=== PATIENT | male | born 1970 | race Caucasian/White ===

== ENCOUNTER 2022-01-10 14:37 | Inpatient (IN) | payer MEDICAID ==
[~2022-01-10] VITALS: Ht 188 cm; Wt 99.3 kg
[2022-01-10] MEDS ORDERED: folic acid 1mg tablet PO STA (16:45)
[2022-01-10] MEDS ORDERED: thiamine 100mg tablet PO STA (16:45)
[2022-01-10] MEDS ORDERED: LORazepam 1 MG tablet PO ONE (16:45)
[2022-01-10] MEDS ORDERED: normal saline 1000ml 1,000 ML IV ONE ×2 (17:00→22:20)
--- NOTE | 2022-01-10 17:10 | NUR ---
1000ml nacl bolas started
--- NOTE | 2022-01-10 17:19 | NUR ---
po meds x3 given
[2022-01-10 17:26] LABS: BASOPHILS # (AUTO) 0.1 X10'3 (0-0.2); BASOPHILS % (AUTO) 0.6 % (0-1); EOSINOPHILS % (AUTO) 0.1 % (0-6); HEMATOCRIT 37.6 % (42.0-52.0); HEMOGLOBIN 12.9 g/dl (14.0-17.9); LYMPHOCYTES % (AUTO) 11.7 % (21-51); MEAN CORPUSCULAR HGB CONC 34.3 g/dL (33.0-36.5); MEAN CORPUSCULAR VOLUME 105.1 FL (78-98); MEAN PLATELET VOLUME 8.7 FL (7.4-10.4); MONOCYTES # (AUTO) 0.9 X10'3 (0-0.9); MONOCYTES % (AUTO) 10.2 % (2-12); NEUTROPHILS # (AUTO) 6.7 X10'3 (1.8-7.7); NEUTROPHILS % (AUTO) 77.4 % (42-75); RED BLOOD COUNT 3.58 X10'6 (4.70-6.10); WHITE BLOOD COUNT 8.6 X10'3 (4.5-11.0)
[2022-01-10 17:37] LABS: ALANINE AMINOTRANSFERASE 118 U/L (12-78); ALBUMIN 3.2 G/DL (3.4-5.0); ALBUMIN/GLOBULIN RATIO 0.7 (1.1-1.5); ALKALINE PHOSPHATASE 138 IU/L (46-116); ANION GAP 11 (8-16); ASPARTATE AMINO TRANSFERASE 377 U/L (10-37); BILIRUBIN,TOTAL 1.7 MG/DL (0.1-1.0); BLOOD UREA NITROGEN 4 MG/DL (7-18); CALCIUM 7.7 MG/DL (8.5-10.1); CHLORIDE 95 MMOL/L (99-107); CREATININE 0.99 MG/DL (0.60-1.10); ETHANOL 0.283 GM/DL (0.0-0.010); GLUCOSE 131 MG/DL (70-104); SODIUM 132 MMOL/L (135-145); TOTAL CARBON DIOXIDE 26.4 MMOL/L (24-32); TOTAL PROTEIN 7.8 G/DL (6.4-8.2); eGFR 79 ML/MIN
[2022-01-10 17:47] LABS: POTASSIUM 2.9 MMOL/L (3.5-5.1)
[2022-01-10 18:26] LABS: PLATELET COUNT 38 X10'3 (140-440)
[2022-01-10] MEDS ORDERED: POTASSIUM BICARB 20meq eff tab 20 MEQ TABLET.EFF PO ONE (18:45)
--- NOTE | 2022-01-10 19:02 | NUR ---
po med given urine sent to lab
[2022-01-10 19:15] LABS: URINE AMPHETAMINE SCREEN NEGATIVE (Neg); URINE BARBITUATE SCREEN NEGATIVE (Neg); URINE BENZODIAZEPINES SCREEN NEGATIVE (Neg); URINE CANNABINOID SCREEN NEGATIVE (Neg); URINE COCAINE SCREEN NEGATIVE (Neg); URINE METHADONE SCREEN NEGATIVE (Neg); URINE OPIATE SCREEN NEGATIVE (Neg); URINE PHENCYCLIDINE SCREEN NEGATIVE (Neg)
[2022-01-10] MEDS ORDERED: LORazepam 2 mg/ml vial IV ONE (22:20)
[2022-01-10 22:36] LABS: LIPASE 456 U/L (73-393)
[2022-01-10 23:56] LABS: ACETAMINOPHEN < 2.0 UG/ML (10-30)
[2022-01-11] MEDS ORDERED: iohexol 300mg/ml 100ml inj. ONE (00:34)
--- NOTE | 2022-01-11 00:42 | NUR ---
PT TO CT WITH TECH
[2022-01-11] MEDS ORDERED: LORazepam 1 MG tablet PO ONE ×2 (05:30)
[2022-01-11] MEDS ORDERED: ringers solution, lacted 1,000 ML IV ONE (06:55)
[2022-01-11] MEDS ORDERED: diazepam inj 5 MG/ML inj. IV ONE (06:56)
[2022-01-11] MEDS ORDERED: POTASSIUM BICARB 20meq eff tab 20 MEQ TABLET.EFF PO ONE (06:57)
[2022-01-11] MEDS ORDERED: magnesium 2GM in 50ml NS 50 ML IV ONE (06:57)
[2022-01-11] MEDS ORDERED: potassium Cl 10 mEq/100mL bag IV ONE (06:58)
[2022-01-11] MEDS ORDERED: ATEN-169 PO (07:24)
[2022-01-11] MEDS ORDERED: BUSP5TAB3 PO (07:25)
[2022-01-11 07:50] LABS: URINE AMPHETAMINE SCREEN NEGATIVE (Neg); URINE BARBITUATE SCREEN NEGATIVE (Neg); URINE BENZODIAZEPINES SCREEN NEGATIVE (Neg); URINE CANNABINOID SCREEN NEGATIVE (Neg); URINE COCAINE SCREEN NEGATIVE (Neg); URINE METHADONE SCREEN NEGATIVE (Neg); URINE OPIATE SCREEN NEGATIVE (Neg); URINE PHENCYCLIDINE SCREEN NEGATIVE (Neg)
[2022-01-11] MEDS ORDERED: ondansetron/PF 4mg/2ml inj IV PRN (10:25)
[2022-01-11] MEDS ORDERED: POTASSIUM BICARB 20meq eff tab 20 MEQ TABLET.EFF PO PRN (10:25)
[2022-01-11] MEDS ORDERED: magnesium 4gm in 100ml NS 100 ML IV PRN (10:25)
[2022-01-11] MEDS ORDERED: magnesium hydroxide 30ml (MOM) UD suspension PO PRN (10:25)
[2022-01-11] MEDS ORDERED: potassium CL 10mEq/100ml bag 100 ML IV PRN (10:25)
[2022-01-11] MEDS ORDERED: acetaminophen 650mg rectal suppository RC PRN (10:25)
[2022-01-11] MEDS ORDERED: haloperidol lactate 5mg/ml inj IM PRN (10:25)
[2022-01-11] MEDS ORDERED: bisacodyl 10mg suppository rectal RC PRN (10:25)
[2022-01-11] MEDS ORDERED: mag hydrox/Alum hydrox/simeth 30ml oral suspension PO PRN (10:25)
[2022-01-11] MEDS ORDERED: dextrose 50%-water 50ml dispensing syringe IV PRN (10:25)
[2022-01-11] MEDS ORDERED: PERFLUTREN PROTEIN-A MICROSPHR (Optison) 0.22 MG/ML 3ML VIAL IV ONE (10:25)
[2022-01-11] MEDS ORDERED: morphine 2 MG/ML inj. syringe IV PRN ×2 (10:25)
[2022-01-11] MEDS ORDERED: magnesium 2GM in 50ml NS 50 ML IV PRN (10:25)
[2022-01-11] MEDS ORDERED: haloperidol 5mg tablet PO PRN (10:25)
[2022-01-11] MEDS ORDERED: diphenhydrAMINE 25mg capsule PO PRN (10:25)
[2022-01-11] MEDS ORDERED: magnesium Cl slow-release 64mg tablet PO PRN (10:25)
[2022-01-11] MEDS ORDERED: acetaminophen 325mg tablet PO PRN ×2 (10:25)
[2022-01-11] MEDS ORDERED: HYDROcodone/acetaminophen 5mg/325mg tablet PO PRN (10:25)
[2022-01-11 10:56] LABS: CLARITY,URINE SLIGHTLY CLOUDY (Clear); COLOR,URINE YELLOW (Yellow); GLUCOSE, URINE NEGATIVE (Neg); KETONES,URINE NEGATIVE (Neg); LEUKOCYTE ESTERASE ,URINE NEGATIVE (Neg); NITRITES, URINE NEGATIVE (Neg); OCCULT BLOOD,URINE MODERATE (Neg); PH,URINE 6.5 (4.8-8.0); PROTEIN,URINE TRACE mg/dl (Neg)
[2022-01-11 10:57] LABS: UA COLLECTION TYPE URINAL
[2022-01-11 11:02] LABS: BACTERIA,URINE 1+ /HPF (Neg); RBC,URINE 0-2 /HPF (0-2); SQUAMOUS EPITHELIAL CELL,UR NONE SEEN /LPF (FEW)
[2022-01-11 11:33] LABS: MAGNESIUM 1.8 MG/DL (1.5-2.4); POTASSIUM 3.6 MMOL/L (3.5-5.1)
[2022-01-11] MEDS: dextrose 5%-normal saline 1,000 ML IV SCH (11:37)
[2022-01-11] MEDS: lactulose 20gm/30ml cup PO SCH ×3 (11:39→20:28)
[2022-01-11 12:14] LABS: HEMOGLOBIN A1C 5.1 % (4.5-6.2)
[2022-01-11] MEDS: LORazepam 2 mg/ml vial IV PRN ×5 (12:48→23:38)
[2022-01-11] MEDS: thiamine 100mg/ml 2ml inj. IV SCH ×2 (12:48→20:27)
[2022-01-11 13:30] LABS: HIV ANTIBODY 1&2 RAPID NON-REACTIVE (Neg)
[2022-01-11] MEDS ORDERED: ATEN100T PO (15:59)
[2022-01-11] MEDS ORDERED: ATOR20TA66 PO (15:59)
[2022-01-11] MEDS ORDERED: BUSP15TA7 PO (15:59)
--- NOTE | 2022-01-11 16:41 | NUR ---
Message: Casey Ballard#[id number]- Pt is very shaky and 1 mg of Ativan is not touching him. pt drinks 1.75 L of vodka daily with Gatorade. sometimes beer as well. per pt. could we get a severe ETOH protocol. thank you. Jayshree [id number]
[2022-01-11 18:00] VITALS: BP 147/86
--- NOTE | 2022-01-11 18:25 | NUR ---
Patient in room PCU 3017. I have received report from JOSE Martell and had the opportunity to ask questions and assume patient care.
--- NOTE | 2022-01-11 18:46 | NUR ---
Problems reprioritized. Patient report given, questions answered & plan of care reviewed with salma GARCIA.
[2022-01-11] MEDS: docusate sod 100mg capsule PO SCH ×2 (20:00→20:28)
[2022-01-11] MEDS: K and/or MAG REPLACEMENT MC SCH (20:00)
[2022-01-11 22:00] VITALS: BP 139/80
[2022-01-12] MEDS: HYDROcodone/acetaminophen 10/325mg tab PO PRN (01:10)
[2022-01-12] MEDS: LORazepam 2 mg/ml vial IV PRN ×6 (01:11→23:57)
[2022-01-12] MEDS: lactulose 20gm/30ml cup PO SCH ×4 (01:12→20:22)
[2022-01-12 02:00] VITALS: BP 132/85
[2022-01-12] MEDS: CefTRIAXone/D5W-Rocephin 1gm 50 ML IV SCH ×2 (02:59→08:17)
[2022-01-12] MEDS: dextrose 5%-normal saline 1,000 ML IV SCH (05:09)
[2022-01-12 06:00] VITALS: BP 120/87
--- NOTE | 2022-01-12 06:26 | NUR ---
Problems reprioritized. Patient report given, questions answered & plan of care reviewed with JOSE Mandujano.
[2022-01-12 06:36] LABS: EOSINOPHILS % (AUTO) 1.1 % (0-6); HEMATOCRIT 36.1 % (42.0-52.0); HEMOGLOBIN 12.3 g/dl (14.0-17.9); LYMPHOCYTES # (AUTO) 0.6 X10'3 (1.1-4.8); LYMPHOCYTES % (AUTO) 16.6 % (21-51); MEAN CORPUSCULAR HEMOGLOBIN 36.6 PG (27.0-31.0); MEAN CORPUSCULAR HGB CONC 34.1 g/dL (33.0-36.5); MEAN CORPUSCULAR VOLUME 107.3 FL (78-98); MEAN PLATELET VOLUME 9.4 FL (7.4-10.4); MONOCYTES # (AUTO) 0.5 X10'3 (0-0.9); MONOCYTES % (AUTO) 12.9 % (2-12); NEUTROPHILS # (AUTO) 2.5 X10'3 (1.8-7.7); NEUTROPHILS % (AUTO) 68.4 % (42-75); RED BLOOD COUNT 3.37 X10'6 (4.70-6.10); RED CELL DISTRIBUTION WIDTH 14.2 % (11.5-14.5); WHITE BLOOD COUNT 3.6 X10'3 (4.5-11.0)
[2022-01-12 06:54] LABS: PLATELET COUNT 24 X10'3 (140-440)
[2022-01-12 06:58] LABS: ALANINE AMINOTRANSFERASE 106 U/L (12-78); ALBUMIN 2.9 G/DL (3.4-5.0); ALBUMIN/GLOBULIN RATIO 0.7 (1.1-1.5); ALKALINE PHOSPHATASE 125 IU/L (46-116); ANION GAP 8 (8-16); ASPARTATE AMINO TRANSFERASE 331 U/L (10-37); BILIRUBIN,TOTAL 2.5 MG/DL (0.1-1.0); BLOOD UREA NITROGEN 6 MG/DL (7-18); BUN/CREATININE RATIO 5.7 (5.4-32.0); CALCIUM 7.9 MG/DL (8.5-10.1); CHLORIDE 104 MMOL/L (99-107); CHOL/HDL RATIO 2.6 (0.00-4.99); CHOLESTEROL 110 MG/DL (0-200); CREATININE 1.06 MG/DL (0.60-1.10); GLUCOSE 103 MG/DL (70-104); HDL CHOLESTEROL 43 MG/DL (35-60); LDL CHOLESTEROL 61 MG/DL (50-100); LIPASE 330 U/L (73-393); POTASSIUM 3.1 MMOL/L (3.5-5.1); SODIUM 141 MMOL/L (135-145); TOTAL PROTEIN 7.1 G/DL (6.4-8.2); TRIGLYCERIDES 46 MG/DL (20-135); eGFR 73 ML/MIN
--- NOTE | 2022-01-12 07:18 | NUR ---
Dr. Damico paged about patient getting medication even though the patient is on NPO. Also paged about the patients critically low at 24.
[2022-01-12] MEDS: docusate sod 100mg capsule PO SCH ×2 (08:00→20:00)
[2022-01-12] MEDS: thiamine 100mg/ml 2ml inj. IV SCH ×3 (08:01→20:25)
[2022-01-12] MEDS: atenolol 50mg tablet PO SCH (08:01)
[2022-01-12] MEDS: busPIRone 15mg tablet PO SCH ×3 (08:01→20:22)
[2022-01-12] MEDS: pantoprazole 40mg Tablet.DR PO SCH (08:01)
[2022-01-12] MEDS: atorvastatin 20mg tablet PO SCH (08:02)
[2022-01-12] MEDS: folic acid 1mg/0.2ml inj IV SCH (08:17)
[2022-01-12] MEDS: K and/or MAG REPLACEMENT MC SCH ×2 (08:30→19:40)
[2022-01-12] MEDS: POTASSIUM BICARB 20meq eff tab 20 MEQ TABLET.EFF PO PRN (08:31)
[2022-01-12 10:53] LABS: HBSAG SCREEN Negative (Negative); HEP A AB, IGM Negative (Negative); HEPATITIS C ANTIBODY <0.1 s/co ratio (0.0-0.9)
[2022-01-12 18:00] VITALS: BP 135/85
--- NOTE | 2022-01-12 18:30 | NUR ---
Patient in room PCU 3017. I have received report from ALEJANDRA GARCIA and had the opportunity to ask questions and assume patient care.
[2022-01-12 22:00] VITALS: BP 147/96
[2022-01-13] MEDS: dextrose 5%-normal saline 1,000 ML IV SCH ×2 (00:02→20:59)
[2022-01-13 02:00] VITALS: BP 139/88
[2022-01-13] MEDS: lactulose 20gm/30ml cup PO SCH ×4 (03:08→20:55)
[2022-01-13] MEDS: LORazepam 2 mg/ml vial IV PRN ×2 (04:28→07:32)
[2022-01-13 06:00] VITALS: BP 156/90
--- NOTE | 2022-01-13 06:30 | NUR ---
Problems reprioritized. Patient report given, questions answered & plan of care reviewed with ALEJANDRA GARCIA.
[2022-01-13] MEDS: pantoprazole 40mg Tablet.DR PO SCH (07:31)
[2022-01-13] MEDS: atorvastatin 20mg tablet PO SCH (07:31)
[2022-01-13] MEDS: busPIRone 15mg tablet PO SCH ×3 (07:31→20:55)
[2022-01-13] MEDS: CefTRIAXone/D5W-Rocephin 1gm 50 ML IV SCH (07:31)
[2022-01-13] MEDS: atenolol 50mg tablet PO SCH (07:31)
[2022-01-13] MEDS: folic acid 1mg/0.2ml inj IV SCH (07:32)
[2022-01-13] MEDS: thiamine 100mg/ml 2ml inj. IV SCH ×3 (07:38→20:55)
[2022-01-13] MEDS: docusate sod 100mg capsule PO SCH ×2 (07:39→20:00)
[2022-01-13 07:46] LABS: BASOPHILS % (AUTO) 0.8 % (0-1); EOSINOPHILS # (AUTO) 0.1 X10'3 (0-0.9); HEMATOCRIT 37.9 % (42.0-52.0); HEMOGLOBIN 12.9 g/dl (14.0-17.9); LYMPHOCYTES # (AUTO) 0.6 X10'3 (1.1-4.8); LYMPHOCYTES % (AUTO) 13.9 % (21-51); MEAN CORPUSCULAR HEMOGLOBIN 36.7 PG (27.0-31.0); MEAN PLATELET VOLUME 10.6 FL (7.4-10.4); MONOCYTES # (AUTO) 0.5 X10'3 (0-0.9); MONOCYTES % (AUTO) 10.9 % (2-12); NEUTROPHILS % (AUTO) 72.4 % (42-75); RED CELL DISTRIBUTION WIDTH 14.4 % (11.5-14.5); WHITE BLOOD COUNT 4.2 X10'3 (4.5-11.0)
[2022-01-13 07:53] LABS: PLATELET COUNT 30 X10'3 (140-440)
[2022-01-13] MEDS: K and/or MAG REPLACEMENT MC SCH ×2 (08:00→20:00)
[2022-01-13 08:26] LABS: ALANINE AMINOTRANSFERASE 97 U/L (12-78); ALBUMIN/GLOBULIN RATIO 0.7 (1.1-1.5); ALKALINE PHOSPHATASE 129 IU/L (46-116); ANION GAP 14 (8-16); ASPARTATE AMINO TRANSFERASE 251 U/L (10-37); BILIRUBIN,TOTAL 2.1 MG/DL (0.1-1.0); BLOOD UREA NITROGEN 8 MG/DL (7-18); BUN/CREATININE RATIO 7.6 (5.4-32.0); CHLORIDE 105 MMOL/L (99-107); CREATININE 1.05 MG/DL (0.60-1.10); GLUCOSE 105 MG/DL (70-104); LIPASE 383 U/L (73-393); POTASSIUM 3.4 MMOL/L (3.5-5.1); SODIUM 145 MMOL/L (135-145); TOTAL PROTEIN 7.5 G/DL (6.4-8.2); eGFR 74 ML/MIN
[2022-01-13] MEDS: POTASSIUM BICARB 20meq eff tab 20 MEQ TABLET.EFF PO PRN (09:08)
[2022-01-13] MEDS ORDERED: LORazepam 1 MG tablet PO PRN (09:30)
[2022-01-13 10:00] VITALS: BP 134/79
[2022-01-13] MEDS ORDERED: LORazepam 2 mg/ml vial IV PRN (10:25)
[2022-01-13 14:00] VITALS: BP 132/79
[2022-01-13 18:00] VITALS: BP 148/90
[2022-01-13] MEDS: LORazepam 1 MG tablet PO PRN (20:56)
[2022-01-13] MEDS: HYDROcodone/acetaminophen 10/325mg tab PO PRN (20:57)
[2022-01-14] VITALS (7 sets, daily range): BP systolic 102–156; BP diastolic 65–94
--- NOTE | 2022-01-14 00:21 | NUR ---
Patient in room PCU 3017. I have received report from Delbert GARCIA and had the opportunity to ask questions and assume patient care.
[2022-01-14] MEDS: lactulose 20gm/30ml cup PO SCH ×4 (02:26→20:00)
[2022-01-14] MEDS: LORazepam 1 MG tablet PO PRN ×8 (02:26→21:19)
[2022-01-14] MEDS: HYDROcodone/acetaminophen 10/325mg tab PO PRN (05:28)
--- NOTE | 2022-01-14 07:00 | NUR ---
Problems reprioritized. Patient report given, questions answered & plan of care reviewed with Pitman RN.
[2022-01-14] MEDS: K and/or MAG REPLACEMENT MC SCH ×2 (08:00→20:00)
[2022-01-14] MEDS: pantoprazole 40mg Tablet.DR PO SCH (08:14)
[2022-01-14] MEDS: busPIRone 15mg tablet PO SCH ×3 (08:14→21:19)
[2022-01-14] MEDS: atenolol 50mg tablet PO SCH (08:14)
[2022-01-14] MEDS: docusate sod 100mg capsule PO SCH ×2 (08:14→20:00)
[2022-01-14] MEDS: thiamine 100mg/ml 2ml inj. IV SCH (08:15)
[2022-01-14] MEDS: atorvastatin 20mg tablet PO SCH (08:20)
[2022-01-14] MEDS: CefTRIAXone/D5W-Rocephin 1gm 50 ML IV SCH (08:34)
[2022-01-14] MEDS: folic acid 1mg/0.2ml inj IV SCH (08:40)
[2022-01-14 09:11] LABS: BASOPHILS # (AUTO) 0.1 X10'3 (0-0.2); BASOPHILS % (AUTO) 1.2 % (0-1); EOSINOPHILS # (AUTO) 0.1 X10'3 (0-0.9); EOSINOPHILS % (AUTO) 2.7 % (0-6); HEMATOCRIT 37.1 % (42.0-52.0); HEMOGLOBIN 12.7 g/dl (14.0-17.9); LYMPHOCYTES # (AUTO) 0.8 X10'3 (1.1-4.8); LYMPHOCYTES % (AUTO) 18.1 % (21-51); MEAN CORPUSCULAR HEMOGLOBIN 36.6 PG (27.0-31.0); MEAN CORPUSCULAR HGB CONC 34.2 g/dL (33.0-36.5); MEAN CORPUSCULAR VOLUME 107.1 FL (78-98); MEAN PLATELET VOLUME 11.2 FL (7.4-10.4); MONOCYTES # (AUTO) 0.6 X10'3 (0-0.9); MONOCYTES % (AUTO) 13.6 % (2-12); NEUTROPHILS # (AUTO) 2.9 X10'3 (1.8-7.7); NEUTROPHILS % (AUTO) 64.4 % (42-75); RED BLOOD COUNT 3.46 X10'6 (4.70-6.10); RED CELL DISTRIBUTION WIDTH 14.2 % (11.5-14.5); WHITE BLOOD COUNT 4.5 X10'3 (4.5-11.0)
[2022-01-14 09:12] LABS: ALANINE AMINOTRANSFERASE 78 U/L (12-78); ALBUMIN 2.9 G/DL (3.4-5.0); ALBUMIN/GLOBULIN RATIO 0.7 (1.1-1.5); ALKALINE PHOSPHATASE 115 IU/L (46-116); ANION GAP 13 (8-16); ASPARTATE AMINO TRANSFERASE 163 U/L (10-37); BILIRUBIN,TOTAL 2.4 MG/DL (0.1-1.0); BLOOD UREA NITROGEN 7 MG/DL (7-18); BUN/CREATININE RATIO 7.5 (5.4-32.0); CALCIUM 7.6 MG/DL (8.5-10.1); CHLORIDE 104 MMOL/L (99-107); CREATININE 0.93 MG/DL (0.60-1.10); GLUCOSE 97 MG/DL (70-104); LIPASE 374 U/L (73-393); MAGNESIUM 1.6 MG/DL (1.5-2.4); PHOSPHORUS 2.5 MG/DL (2.3-4.5); POTASSIUM 3.2 MMOL/L (3.5-5.1); SODIUM 142 MMOL/L (135-145); TOTAL CARBON DIOXIDE 25.4 MMOL/L (24-32); TOTAL PROTEIN 7.1 G/DL (6.4-8.2); eGFR 85 ML/MIN
[2022-01-14 09:29] LABS: PLATELET COUNT 39 X10'3 (140-440)
--- NOTE | 2022-01-14 09:40 | NUR ---
Doctor Nisha paged and informed of patient's platelet's result at 0940. Platelets is 39. I spoke with Doctor Cameron and he stated he is aware of the platelet at 39. No further advice given. Will continue to monitor.
[2022-01-14] MEDS ORDERED: POTASSIUM BICARB 20meq eff tab 20 MEQ TABLET.EFF PO PRN (11:30)
[2022-01-14] MEDS ORDERED: magnesium Cl slow-release 64mg tablet PO PRN (11:30)
[2022-01-14] MEDS ORDERED: magnesium 4gm in 100ml NS 100 ML IV PRN (11:30)
[2022-01-14] MEDS ORDERED: potassium CL 10mEq/100ml bag 100 ML IV PRN (11:30)
[2022-01-14] MEDS: dextrose 5%-normal saline 1,000 ML IV SCH (12:38)
--- NOTE | 2022-01-14 13:01 | NUR ---
Patient continues to have watery stool throughout this morning. Patient refused to take anymore lactulose today. Refused afternoon dose. Patient has tremors and appears restless. Ativan given per orders. Patient asking for Nicotine patch. Doctor Nisha paged. Awaiting return called.
[2022-01-14] MEDS: POTASSIUM BICARB 20meq eff tab 20 MEQ TABLET.EFF PO PRN ×2 (14:53→21:18)
[2022-01-15] MEDS: lactulose 20gm/30ml cup PO SCH ×3 (01:05→13:12)
[2022-01-15 02:00] VITALS: BP 146/87
[2022-01-15] MEDS: LORazepam 1 MG tablet PO PRN (02:43)
[2022-01-15 06:49] LABS: ALANINE AMINOTRANSFERASE 70 U/L (12-78); ALBUMIN 2.9 G/DL (3.4-5.0); ALBUMIN/GLOBULIN RATIO 0.7 (1.1-1.5); ALKALINE PHOSPHATASE 110 IU/L (46-116); ANION GAP 11 (8-16); ASPARTATE AMINO TRANSFERASE 121 U/L (10-37); BILIRUBIN,TOTAL 2.4 MG/DL (0.1-1.0); BLOOD UREA NITROGEN 5 MG/DL (7-18); BUN/CREATININE RATIO 5.4 (5.4-32.0); CALCIUM 7.9 MG/DL (8.5-10.1); CHLORIDE 102 MMOL/L (99-107); CREATININE 0.92 MG/DL (0.60-1.10); GLUCOSE 85 MG/DL (70-104); LIPASE 349 U/L (73-393); MAGNESIUM 1.7 MG/DL (1.5-2.4); POTASSIUM 3.4 MMOL/L (3.5-5.1); SODIUM 141 MMOL/L (135-145); TOTAL PROTEIN 7.3 G/DL (6.4-8.2); eGFR 86 ML/MIN
[2022-01-15 06:52] LABS: BASOPHILS % (AUTO) 1.1 % (0-1); EOSINOPHILS # (AUTO) 0.2 X10'3 (0-0.9); EOSINOPHILS % (AUTO) 4.2 % (0-6); HEMATOCRIT 39.9 % (42.0-52.0); HEMOGLOBIN 13.4 g/dl (14.0-17.9); LYMPHOCYTES # (AUTO) 1.1 X10'3 (1.1-4.8); MEAN CORPUSCULAR HEMOGLOBIN 36.1 PG (27.0-31.0); MEAN CORPUSCULAR HGB CONC 33.5 g/dL (33.0-36.5); MEAN CORPUSCULAR VOLUME 107.9 FL (78-98); MONOCYTES # (AUTO) 0.8 X10'3 (0-0.9); MONOCYTES % (AUTO) 16.9 % (2-12); NEUTROPHILS # (AUTO) 2.4 X10'3 (1.8-7.7); NEUTROPHILS % (AUTO) 53.8 % (42-75); RED CELL DISTRIBUTION WIDTH 14.5 % (11.5-14.5); WHITE BLOOD COUNT 4.5 X10'3 (4.5-11.0)
[2022-01-15 06:57] LABS: PLATELET COUNT 41 X10'3 (140-440)
[2022-01-15 07:10] VITALS: BP 148/90
--- NOTE | 2022-01-15 07:12 | NUR ---
Patient refused 199 Lactulose 30 ml PO related to he want to sleep and don't go to bathroom always BM, his ammonia level is trend down from 64, 53, 38, MD notified.
--- NOTE | 2022-01-15 07:20 | NUR ---
PAGER ID: [phone] MESSAGE: [phone] Lor Ballard: ileana...critical plt 41. trending up. thanks, alden [id number]
[2022-01-15] MEDS: pantoprazole 40mg Tablet.DR PO SCH (07:30)
[2022-01-15 08:00] VITALS: BP_SYST 148
[2022-01-15] MEDS: busPIRone 15mg tablet PO SCH ×2 (08:00→13:11)
[2022-01-15] MEDS: CefTRIAXone/D5W-Rocephin 1gm 50 ML IV SCH (08:00)
[2022-01-15] MEDS: docusate sod 100mg capsule PO SCH (08:00)
[2022-01-15] MEDS: K and/or MAG REPLACEMENT MC SCH (08:00)
[2022-01-15] MEDS: atenolol 50mg tablet PO SCH (08:00)
[2022-01-15] MEDS: atorvastatin 20mg tablet PO SCH (08:00)
[2022-01-15] MEDS ORDERED: FOLI1TAB27 PO (08:20)
[2022-01-15] MEDS ORDERED: LORA-269 PO (08:20)
[2022-01-15 10:16] LABS: TOTAL CELLS COUNTED 100
[2022-01-15 10:17] LABS: PLATELET ESTIMATE DECREASED
[2022-01-15] MEDS ORDERED: LORazepam 1 MG tablet PO PRN (10:25)
[2022-01-15] MEDS ORDERED: LORazepam 2 mg/ml vial IV PRN (10:25)
--- NOTE | 2022-01-15 12:03 | NUR ---
Met with patient in regards to alcohol use and to see if patient was interested in resources for treatment options. Patient is interested in both in and out patient rehabs. I gave patient an application for [facility], also [facility], a list of different facilities and talked about medication management to help with cravings.
[2022-01-15] MEDS: dextrose 5%-normal saline 1,000 ML IV SCH (13:13)
--- NOTE | 2022-01-15 13:39 | NUR ---
Patient stable and appropriate for discharge home. IV x2 removed, night monitor removed. All discharge instructions and education given and reviewed with patient, all questions answered. FWW delivered to room.
[2022-01-16] MEDS ORDERED: thiamine 100mg tablet PO SCH (08:00)
[2022-01-16] MEDS ORDERED: folic acid 1mg tablet PO SCH (08:00)
== END 2022-01-15 13:40 | disposition home or self-care (01) | DRG 280 ==
LOC: ER 14:37 → ED HOLD 01-11 10:28 → PCU 3S 01-11 16:54
PROVIDERS: ADMIT Family Medicine; ATTEND Family Medicine
PROC: BW211ZZ Computerized Tomography (CT Scan) of Abdomen and Pelvis using Low Osmolar Contrast (ICD-10-PCS; principal; 2022-01-11)
DX: K70.10 Alcoholic hepatitis without ascites (principal); K85.20 Alcohol induced acute pancreatitis without necrosis or infection; E87.2 Acidosis; E87.1 Hypo-osmolality and hyponatremia; R16.0 Hepatomegaly, not elsewhere classified; Z20.822 Contact with and (suspected) exposure to COVID-19; D69.59 Other secondary thrombocytopenia; D53.9 Nutritional anemia, unspecified; S80.01XA Contusion of right knee, initial encounter; E78.5 Hyperlipidemia, unspecified; E87.6 Hypokalemia; F10.229 Alcohol dependence with intoxication, unspecified; F32.A Depression, unspecified; W18.39XA Other fall on same level, initial encounter; F10.230 Alcohol dependence with withdrawal, uncomplicated; I10 Essential (primary) hypertension; K74.60 Unspecified cirrhosis of liver; F17.210 Nicotine dependence, cigarettes, uncomplicated; N39.0 Urinary tract infection, site not specified; R29.6 Repeated falls; S80.02XA Contusion of left knee, initial encounter; Z59.00 Homelessness unspecified; Z79.899 Other long term (current) drug therapy; Z88.0 Allergy status to penicillin; Y93.89 Activity, other specified; Y92.89 Other specified places as the place of occurrence of the external cause; Y99.8 Other external cause status
CPT/HCPCS: 36415; 73560; 74177; 76700; 80053; 80061; 80305; 80320; 80329; 81001; 82140; 83036; 83605; 83690; 83735; 84100; 84132; 85007; 85025; 85610; 86703; 86705; 86709; 86803; 87040; 87088; 87340; 87502; 87503; 87635; 93306; 97116; 97161; 97530; 99285; G0378; J0696; J2060; J3360; J3411; J3475; J3480; J3490; J7030; J7042; J7120; Q9967

== ENCOUNTER 2023-07-15 20:08 | Emergency (ER) | payer MEDICAID ==
[~2023-07-15] VITALS: Ht 188 cm; Wt 93.0 kg
[~2023-07-15 20:08] MED LIST: ATEN100T PO; ATOR20TA66 PO; BUSP15TA7 PO; FOLI1TAB27 PO; LORA-269 PO
[2023-07-15 20:26] VITALS: BP 155/105; PULSE 88; RESP 18; TEMP 98.2; O2SAT 96
[2023-07-15 21:20] LABS: BASOPHILS # (AUTO) 0.1 X10'3 (0-0.2); EOSINOPHILS # (AUTO) 0.2 X10'3 (0-0.9); LYMPHOCYTES # (AUTO) 0.9 X10'3 (1.1-4.8); MONOCYTES # (AUTO) 0.6 X10'3 (0-0.9)
[2023-07-15 21:24] LABS: HEMATOCRIT 42.8 % (42.0-52.0); MEAN CORPUSCULAR VOLUME 103.9 FL (78-98); RED BLOOD COUNT 4.12 X10'6 (4.70-6.10)
[2023-07-15 21:25] LABS: EOSINOPHILS % (AUTO) 3.1 % (0-6); HEMOGLOBIN 14.8 g/dl (14.0-17.9); MEAN CORPUSCULAR HEMOGLOBIN 35.9 PG (27.0-31.0); MEAN CORPUSCULAR HGB CONC 34.5 g/dL (33.0-36.5); MEAN PLATELET VOLUME 8.9 FL (7.4-10.4); MONOCYTES % (AUTO) 11.7 % (2-12); NEUTROPHILS # (AUTO) 3.6 X10'3 (1.8-7.7); NEUTROPHILS % (AUTO) 66.2 % (42-75); PLATELET COUNT 62 X10'3 (140-440); RED CELL DISTRIBUTION WIDTH 13.8 % (11.5-14.5); WHITE BLOOD COUNT 5.4 X10'3 (4.5-11.0)
[2023-07-15 21:30] LABS: ALANINE AMINOTRANSFERASE 125 U/L (12-78); ALBUMIN 3.3 G/DL (3.4-5.0); ALBUMIN/GLOBULIN RATIO 0.7 (1.1-1.5); ALKALINE PHOSPHATASE 124 IU/L (46-116); ANION GAP 14 (8-16); ASPARTATE AMINO TRANSFERASE 284 U/L (10-37); BILIRUBIN,TOTAL 2.2 MG/DL (0.1-1.0); BLOOD UREA NITROGEN 6 MG/DL (7-18); CALCIUM 7.9 MG/DL (8.5-10.1); CHLORIDE 99 MMOL/L (99-107); CREATININE 0.75 MG/DL (0.60-1.10); GLUCOSE 128 MG/DL (70-104); POTASSIUM 4.1 MMOL/L (3.5-5.1); SODIUM 137 MMOL/L (135-145); TOTAL CARBON DIOXIDE 24.2 MMOL/L (24-32); TOTAL PROTEIN 8.1 G/DL (6.4-8.2); eCRCL 132 ML/MIN; eGFR > 90 ML/MIN
[2023-07-15 21:40] LABS: PRO BRAIN NATRIURETIC PEPTIDE 52 PG/ML (0-125)
[2023-07-16 00:57] LABS: PLATELET ESTIMATE DECREASED; TARGET CELLS FEW; TOTAL CELLS COUNTED 100
== END 2023-07-16 00:10 | disposition home or self-care (01) ==
LOC: ER 20:09
DX: L03.115 Cellulitis of right lower limb (principal); L03.116 Cellulitis of left lower limb
CPT/HCPCS: 36415; 80053; 83880; 85007; 85025; 99283